=== PATIENT | female | born 1995 | race Two or more races ===

== ENCOUNTER 2019-02-08 08:33 | Emergency (ER) | payer OTHER ==
[~2019-02-08] VITALS: Ht 157.5 cm; Wt 47.6 kg
[2019-02-08 08:40] VITALS: BP 100/65
--- NOTE | 2019-02-08 09:02 | PHYS DOC ---
Past History Past Medical History: No Pertinent History Past Surgical History: No Surgical History Smoking: Cigarettes Alcohol Use: Rarely Drug Use: None Adult General Chief Complaint Chief Complaint: GENERALIZED BODY ACHES HPI HPI 23-year-old female presents with report of body aches since last night and epis ode of abdominal pain and nausea at 0300 this morning. Patient reports some improvement of her symptoms. Denies any chest pain, sore throat, nasal congestion, or neck pain. Denies trauma. Denies . Denies dysuria or hematuria. Patient reports she is currently in the and needs to be evaluated given illness. Review of Systems Review of Systems Constitutional: Denies fever or chills; reports malaise and body aches Eyes: Denies redness or eye pain HENT: Denies nasal congestion or sore throat Respiratory: Denies cough or shortness of breath Cardiovascular: Denies chest pain or palpitations GI: Denies vomiting; reports abdominal pain and nausea : Denies dysuria or hematuria Musculoskeletal: Denies back pain or joint pain Integument: Denies rash or skin lesions Neurologic: Denies headache, focal weakness or sensory changes Complete systems were reviewed and found to be within normal limits, except as documented in this note. Allergies Allergies Allergies Coded Allergies Type Severity Reaction Last Updated Verified No Known Drug Allergies 02/08/19 No Physical Exam Physical Exam Constitutional: Well developed, well nourished, no acute distress, non-toxic appearance HENT: Normocephalic, atraumatic, oropharynx moist, pharynx normal, TMs clear Eyes: Conjunctiva normal, no discharge Neck: Normal range of motion, no tenderness, supple, no meningeal signs Cardiovascular: Heart rate normal, regular rhythm Lungs & Thorax: Bilateral breath sounds clear to auscultation, no wheezing Abdomen: Soft, no tenderness Skin: Warm, dry, no erythema, no rash Extremities: No tenderness, ROM intact, no edema Neurologic: Alert and oriented X 3, no focal deficits noted Psychologic: Affect normal, judgement normal EKG EKG [] Radiology/Procedures Radiology/Procedures [] Course & Med Decision Making Course & Med Decision Making Patient presents with history of present illness and physical exam more likely secondary to viral illness. Abdomen non-peritoneal. No focal signs of infection on physical exam. Afebrile. Symptomatic treatment provided with oral ibuprofen and steroid. Patient stable for discharge with outpatient follow-up with PCPBrisa cortez findings and plan with patient and friend, who acknowledge understanding and agreement. A work excuse for today provided. Dragon Disclaimer Dragon Disclaimer This electronic medical record was generated, in whole or in part, using a voice recognition dictation system. Departure Departure: Impression: Primary Impression: Viral illness Disposition: HOME, SELF-CARE Condition: STABLE Referrals: PCP,UNKNOWN (PCP) Patient Instructions: Viral Syndrome Additional Instructions: Use over the counter Tylenol and Ibuprofen for pain or discomfort and for fever as needed. MEDHAT PRICE DO Feb 08, 2019 09:02
[2019-02-08] MEDS ORDERED: DEXAMETHASONE 4 MG TABLET PO ONE (09:30)
[2019-02-08] MEDS ORDERED: IBUPROFEN 400 MG TABLET. PO ONE (09:30)
== END 2019-02-08 09:18 | disposition home or self-care (01) ==
LOC: ER 08:33
DX: B34.9 Viral infection, unspecified (principal); F17.210 Nicotine dependence, cigarettes, uncomplicated
CPT/HCPCS: 99283; J8540

== ENCOUNTER 2020-04-27 14:26 | Emergency (ER) | payer OTHER ==
[~2020-04-27] VITALS: Ht 157.5 cm; Wt 47.6 kg
[2020-04-27 14:28] VITALS: BP 105/59
[2020-04-27] MEDS ORDERED: IBUPROFEN 100 MG/5 ML ORAL.SUSP. PO ONE (15:00)
[2020-04-27] MEDS ORDERED: DEXAMETHASONE SOD PHOS 10 MG/ML VIAL. PO ONE (15:00)
--- NOTE | 2020-04-27 15:12 | PHYS DOC ---
Past History Past Medical History: No Pertinent History Past Surgical History: No Surgical History Smoking: Cigarettes Alcohol Use: Rarely Drug Use: None Adult General Chief Complaint Chief Complaint: SORE THROAT HPI HPI Patient is a 24-year-old female presents to the emergency department complaining of a sore throat that started 3 days ago, patient reports at that time it was just a minor discomfort with some throat scratchiness feeling. Patient states that yesterday it became worse and today the pain increased to the point where she had difficulty swallowing or eating without feeling a 9/10 pain on a 1-10 pain scale. Patient denies any recent fever or chills, patient does report that she feels fatigued and generally tired however patient states she does have a history of narcolepsy and feels the same way when she has her narcoleptic episodes. Patient states she has not been treated with any medications for her narcolepsy. Patient denies any allergies to medications. Patient denies any nausea vomiting congestion cough shortness of breath chest pain or chest palpitations. Patient denies any abdominal pains, urinary tract infection type symptoms. Patient denies rashes of her skin. Patient denies any visual disturbances, denies any drainage from her nose or drainage from her ears. Patient denies any ear pain. Patient denies any recent exposure to the COVID-19 virus, states no one else living in her home is having the same symptoms that she. Review of Systems Review of Systems 14 body systems of review of systems have been reviewed. See HPI for pertinent positives and negative responses, otherwise all other systems are negative, nonpertinent or noncontributory. Current Medications Current Medications Current Medications Medications (Trade) Dose Ordered Sig/Emi Start Time Stop Time Status Last Admin Dose Admin Dexamethasone Sodium Phosphate (Decadron) 10 mg 1X ONCE 04/27/20 15:00 04/27/20 15:03 DC 04/27/20 15:11 10 MG Ibuprofen (Motrin) 470 mg 1X ONCE 04/27/20 15:00 04/27/20 15:03 DC Allergies Allergies Allergies Coded Allergies Type Severity Reaction Last Updated Verified No Known Drug Allergies 02/08/19 No Physical Exam Physical Exam Constitutional: Well developed, well nourished, no acute distress, non-toxic appearance. HENT: Normocephalic, atraumatic, bilateral external ears normal, oropharynx moist, no oral exudates, nose normal. Bilateral TMs within normal limits, oropharynx erythematous with mild uvular swelling, mild tonsillar swelling, no peritonsillar abscess appreciated, no postnasal drip noted. Mild cobblestoning appearance. Eyes: PERRLA, EOMI, conjunctiva normal, no discharge. [] Neck: Normal range of motion, no tenderness, supple, no stridor. [] Cardiovascular:Heart rate regular rhythm, no murmur [] Lungs & Thorax: Bilateral breath sounds clear to auscultation all lung ball, patient is not in respiratory distress. Abdomen: Bowel sounds normal, soft, no tenderness, no masses, no pulsatile masses. [] Skin: Warm, dry, no erythema, no rash. [] Back: No tenderness, no CVA tenderness. [] Extremities: No tenderness, no cyanosis, no clubbing, ROM intact, no edema. [] Neurologic: Alert and oriented X 3, normal motor function, normal sensory function, no focal deficits noted. [] Psychologic: Affect normal, judgement normal, mood normal. [] Current Patient Data Lab Results Current Medications Medications (Trade) Dose Ordered Sig/Emi Route PRN Reason Start Time Stop Time Status Last Admin Dose Admin Dexamethasone Sodium Phosphate (Decadron) 10 mg 1X ONCE PO 04/27/20 15:00 04/27/20 15:03 DC 04/27/20 15:11 Ibuprofen (Motrin) 470 mg 1X ONCE PO 04/27/20 15:00 04/27/20 15:03 DC 04/27/20 15:12 EKG EKG [] Radiology/Procedures Radiology/Procedures [] Heart Score Risk Factors: Risk Factors: DM, Current or recent (<one month) smoker, HTN, HLP, family h istory of CAD, obesity. Risk Scores: Risk Factors: DM, Current or recent (<one month) smoker, HTN, HLP, family history of CAD, obesity. Course & Med Decision Making Course & Med Decision Making Pertinent Labs and Imaging studies reviewed. (See chart for details) 24-year-old female, vital signs reviewed, presents emergency department complaining of sore throat for past 3 days. Examination concerning for strep throat, patient given p.o. children's ibuprofen for throat discomfort, 10 mg p.o. Decadron for your mild uvular swelling. Patient was speaking in full sentences, no muffled voice tones, patient was not in respiratory distress, nonconcerning for acute airway compromise. A Covid test was drawn along with rapid flu and rapid strep-A. Patient was positive for rapid strep-A. Patient will be given prescription for Augmentin p.o. twice daily x10 days. Patient's rapid flu A/B negative per lab results Discussed findings with patient, discussed using [id number] throat analgesics such as Chloraseptic spray, [id number] children's ibuprofen for throat discomfort, patient gave verbal understanding of prescription antibiotic use, return to ER precautions, see primary MD soon, patient discharged home without incident. Related to patient's general malaise, COVID-19 test was obtained, patient will be considered a PUI for the next 2 days pending COVID-19 results. Patient given work excuse for 2 days to self isolate pending Covid test negative may return back to work otherwise Covid test positive will be given a work excuse for a total of 10 days. Dragon Disclaimer Dragon Disclaimer This electronic medical record was generated, in whole or in part, using a voice recognition dictation system. Departure Departure: Impression: Primary Impression: Strep pharyngitis Additional Impressions: Person under investigation for COVID-19 Counseled about COVID-19 virus infection Educated about COVID-19 virus infection Disposition: 01 DC HOME SELF CARE/HOMELESS Condition: GOOD Referrals: PCP,UNKNOWN (PCP) Patient Instructions: Strep Throat Additional Instructions: You have been diagnosed with strep throat, we have discussed antibiotic use, please take antibiotics as prescribed until completed. Return to the emergency department for worsening symptoms or other concerns. We have tested you for the COVID-19 virus today. You will be given a work excuse for 2 days pending the results, you may return to regular work if results are negative, if positive your work excuse will extend for a total of 10 days to the you can self isolate please return to the emergency department for worsening symptoms or other conc erns, see your doctor soon EMERGENCY DEPARTMENT GENERAL DISCHARGE INSTRUCTIONS Thank you for coming to [facility] (ED) today and trusting us with you care. We trust that you had a positivie experience in our Emergency Department. If you wish to speak to the department management, you may call the director at [phone]. YOUR FOLLOW UP INSTRUCTIONS ARE FOLLOWS: 1. Do you have a private Doctor? If you do not have a private doctor, please ask for a resource list of physicians or clinics that may be able to assist you with follow up care. 2. The Emergency Physician has interpreted your x-rays. The X-Ray specialist will also review them. If there is a change in the findings, you will be notified in 48 hours when at all possible. 3. A lab test or culture has been done, your results will be reviewed and you will be notified if you need a change in treatment. ADDITIONAL INSTRUCTIONS AND INFORMATION: 1. Your care today has been supervised by a physician who is specially trained in emergency care. Many problems require more than one evaluation for a complete diagnosis and treatment. We recommend that you schedule your follow up appointment as recommended to ensure complete treatment of you illness or injury. If you are unable to obtain follow up care and continue to have a problem, or if your condition worsens, we recommend that you return to the ED. 2. We are not able to safely determine your condition over the phone nor are we able to give sound medical advice over the phone. For these safety reasons, if you call for medical advice we will ask you to come to the ED for further evaluation. 3. If you have any questions regarding these discharge instructions please call the ED at [phone]. SAFETY INFORMATION: In the interest of safety, wellness, and injury prevention; we encourage you to wear your sealbelt, if you smoke; quite smoking, and we encourage family to use a protective helmet for bicycling and other sporting events that present an increased risk for head injury. IF YOUR SYMPTOMS WORSEN OR NEW SYMPTOMS DEVELOP, OR YOU HAVE CONCERNS ABOUT YOUR CONDITION; OR IF YOUR CONDITION WORSENS WHILE YOU ARE WAITING FOR YOUR FOLLOW UP APPOINTMENT; EITHER CONTACT YOUR PRIMARY CARE DOCTOR, THE PHYSICIAN WHOSE NAME AND NUMBER YOU WERE GIVEN, OR RETURN TO THE ED IMMEDIATELY. You have been tested for or diagnosed with COVID-19. It is an infection caused by a new type of coronavirus. COVID-19 will cause cold-like or mild flu symptoms in most. It can cause more severe symptoms like problems breathing in some. There is no treatment for COVID-19. The body will clear the infection over time. Self-care will help to ease discomfort. Steps to Take: Self-Care Rest as needed. Healthy habits may help you feel better. Steps include: Choose healthy foods including fruits and vegetables. Drink water throughout the day. Get plenty of sleep each night. If you smoke, try to quit. It may ease breathing. Avoid alcohol. Keep Others Healthy The virus can spread to others. Droplets are released every time you sneeze or cough. The droplets can get into the mouth, nose, or eyes of people near you and lead to infection. To lower the chances of spreading COVID-19 to others: Stay at home until your doctor has said it is safe to leave. If you tested positive this will mean staying isolated until both of the following are true: At least 7 days have passed since the start of illness. You are free of fever for at least 72 hours without the use of medicine. During this time: - Avoid public areas, events, or transportation. Do not return to work or school until your doctor has said it is safe to do so. - Call ahead if you need to go to a medical center. Let them know you may have COVID-19. It will help them guide you where to go. They may also ask you to wear a facemask when you come to the office. - If you call for emergency medical services, let them know you may have COVID- 19. While at home: - Try to avoid close contact with others. Stay about 6 feet away. - If possible, spend most of your time in a separate room from others. - Use a face mask if you will be in close contact with others such as sharing a room or vehicle. - Have someone wipe down common surfaces in the home. Use household volunteer services supervisor every day on areas like doorknobs, counters, or sinks. - Cough or sneeze into a tissue. Throw the tissue away right after use. If a tissue is not available, cough or sneeze into your elbow. - Wash your hands often. Wash them after sneezing or coughing. Use soap and water and wash for at least 20 seconds. Alcohol based hand shafting cleaner can be used if soap and water is not available. - Do not prepare food for others. Avoid sharing personal items like forks, spoons, or toothbrushes. - Avoid close contact with pets while you are sick. There is no evidence of the virus passing to pets. This is a safety step until more is known about this virus. Isolation can be frustrating. Social interaction can help. Keep in touch with friends and family through phone and tech options. You can still interact with others in your home, just keep a safe distance of about 6 feet. Follow-up: Your doctors office will check in with you to see if there are any changes in your health. You may be asked to keep track of symptoms to share with them. They will also let you know when you are clear to be in public again. Problems to Look Out For: Contact your doctor if your recovery is not going as you expect. Get emergency care if you have problems such as: - Trouble breathing - Nonstop chest pain or pressure - Changes in awareness, confusion, or problems waking - Lips or face have bluish color - Worsening of symptoms If you think you have an emergency, call for emergency medical services right away. As taken from [facility] Amoxicillin/Potassium Clav (AUGMENTIN [id number] TABLET) 1 Each Tablet 1 TAB PO BID for STREP THROAT for 10 Days, #20 TAB 0 Refills Prov: MEDHAT ROY APRN 04/27/20 Problem Qualifiers MEDHAT ROY APRN Apr 27, 2020 15:12
[2020-04-27 15:37] LABS: INFLUENZA A PATIENT NEGATIVE (NEGATIVE); INFLUENZA B PATIENT NEGATIVE (NEGATIVE)
[2020-04-27] MEDS ORDERED: AMOX1TAB61 PO (15:45)
== END 2020-04-27 15:50 | disposition home or self-care (01) ==
LOC: ER 14:26
DX: J02.0 Streptococcal pharyngitis (principal); B95.0 Streptococcus, group A, as the cause of diseases classified elsewhere; F17.210 Nicotine dependence, cigarettes, uncomplicated; Z20.828 Contact with and (suspected) exposure to other viral communicable diseases
CPT/HCPCS: 87804; 87880; 99283; C9803; J1100; U0003